=== PATIENT | female | born 1940 | race Caucasian/White ===

== ENCOUNTER 2024-04-16 12:04 | Observation (INO) ==
[2024-04-16] MEDS: NS 1,000 ML IV 1,000 ML IV ONE (12:46)
--- NOTE | 2024-04-16 12:50 | EKG ---
Test Reason : covid Blood Pressure : */* mmHG Vent. Rate : 80 BPM Atrial Rate : 80 BPM P-R Int : 156 ms QRS Dur : 126 ms QT Int : 410 ms P-R-T Axes : 46 -2 111 degrees QTc Int : 472 ms Normal sinus rhythm Left bundle branch block Abnormal ECG No previous ECGs available Confirmed by Go Falcon MD ([id number]) on 04/16/2024 5:39:05 PM Referred By: Confirmed By: Go Falcon MD
[2024-04-16 12:53] LABS: BASOPHILS % (AUTO) 0.7 % (0.2-1.0); HEMATOCRIT 37.3 % (36.0-47.0); HEMOGLOBIN 12.8 g/dL (12.0-16.0); LYMPHOCYTES # (AUTO) 0.7 X10^3/uL (1.3-2.9); LYMPHOCYTES % (AUTO) 14.2 % (21.0-51.0); MEAN CORPUSCULAR HEMOGLOBIN 29.9 pg (27.0-34.0); MEAN CORPUSCULAR HGB CONC 34.2 g/dL (33.0-35.0); MEAN CORPUSCULAR VOLUME 87.5 fL (80.0-100.0); MONOCYTES # (AUTO) 0.6 x10^3/uL (0.3-0.8); MONOCYTES % (AUTO) 13.3 % (0.0-13.0); NEUTROPHILS # (AUTO) 3.4 x10^3/uL (2.2-4.8); NEUTROPHILS % (AUTO) 71.8 % (42.0-75.0); PLATELET COUNT 349 X10^3/uL (150.0-450.0); RED BLOOD COUNT 4.27 X10^6/uL (3.5-5.4); RED CELL DISTRIBUTION WIDTH 13.5 % (11.6-16.5); WHITE BLOOD COUNT 4.8 X10^3/uL (3.6-10.0)
--- NOTE | 2024-04-16 12:58 | DR.URIAD ---
HPI Time Seen Time Seen by Provider: 04/16/24 12:58 PCP Primary Care Physician: Brionna Seth Complaint Chief Complaint Doctors Comments: From primary care providers office with diagnosis of COVID today and lethargy. Chief Complaint:: c/o weakness and was DX with COVID today at PCP office. denies cough or SOB only c/o sore throat and difficulty swallowing dt the sore throat. COVID-19 Has patient experienced Coronavirus symptoms: No Source History Provided: Patient Mode of Arrival Mode of Arrival: Ambulatory Timing Onset of Chief Complaint: 04/13/24 Quality Shortness of Breath: none PMH PMH Past Medical History: Yes Past Medical History: Arthritis, Dyslipidemia and Hypertension Past Surgical History: Yes Surgical History: Other Past Surgical History Comment: breast left lumpectomy Family History History of Family Medical Conditions: Yes Family Medical History: Cancer, [place], Coronary Artery Disease and Hypertension Social History Type of Tobacco Use: None Alcohol Use: None Do you use any recreational Drugs:: No Lives With: Alone Lives Where: Home Travel Risk Has patient experienced Coronavirus symptoms: No Infectious screening Have you traveled outside the country in the last 6 months?: No Isolation: Standard ROS Review of Systems Constitutional: Other (With some hypoxia and lethargy) Eyes: No Symptoms Reported ENTM: No Symptoms Reported Respiratoy: Non-Productive Cough Cardiovascular: No Symptoms Reported Gastrointestinal/Abdominal: No Symptoms Reported Genitourinary: No Symptoms Reported Neurological: No Symptoms Reported Musculoskeletal: No Symptoms Reported Integumentary: No Symptoms Reported Hematologic/Lymphatic: No Symptoms Reported Endocrine: No Symptoms Reported Psychiatric: No Symptoms Reported PE Vital Signs Vitals: Vital Signs Temperature 98.1 F Pulse Rate 96 Pulse Rate 82 Pulse Rate 85 Pulse Rate 82 Pulse Rate 81 Pulse Rate 79 Pulse Rate 77 Pulse Rate 76 Pulse Rate 75 Pulse Rate 75 Pulse Rate 75 Pulse Rate 125 Pulse Rate 77 Pulse Rate 70 Pulse Rate 154 Pulse Rate 136 Pulse Rate 78 Pulse Rate 77 Pulse Rate 83 Respiratory Rate 25 Respiratory Rate 15 Respiratory Rate 23 Respiratory Rate 25 Respiratory Rate 21 Respiratory Rate 19 Respiratory Rate 17 Respiratory Rate 26 Respiratory Rate 19 Respiratory Rate 27 Respiratory Rate 17 Respiratory Rate 32 Respiratory Rate 29 Respiratory Rate 39 Respiratory Rate 37 Respiratory Rate 39 Respiratory Rate 25 Respiratory Rate 21 Respiratory Rate 20 Blood Pressure 104/69 Blood Pressure 116/72 Blood Pressure 105/53 Blood Pressure 94/59 Blood Pressure 103/49 Blood Pressure 120/82 Blood Pressure 100/71 O2 Sat by Pulse Oximetry 93 O2 Sat by Pulse Oximetry 94 O2 Sat by Pulse Oximetry 96 O2 Sat by Pulse Oximetry 93 O2 Sat by Pulse Oximetry 95 O2 Sat by Pulse Oximetry 94 O2 Sat by Pulse Oximetry 98 O2 Sat by Pulse Oximetry 100 O2 Sat by Pulse Oximetry 98 O2 Sat by Pulse Oximetry 96 O2 Sat by Pulse Oximetry 98 O2 Sat by Pulse Oximetry 100 O2 Sat by Pulse Oximetry 95 O2 Sat by Pulse Oximetry 99 O2 Sat by Pulse Oximetry 96 O2 Sat by Pulse Oximetry 94 O2 Sat by Pulse Oximetry 99 General Limitations: Physical Limitation (weak) General Appearance: Lethargic Head Head Exam: Normal Inspection, Atraumatic and Normocephalic Eyes Eye exam: Normal Appearance and PERRL ENT ENT Exam: Normal Oropharynx External Ear Exam: Normal External Inspection TM/Canal Exam: Bilateral: Normal Nose Exam: Normal Nose Exam Nasal Speculum Exam: Bilateral: Normal Mouth Exam: Normal Inspection Throat Exam: Normal Inspection Neck Neck Exam: Normal Inspection Chest Chest Inspection: Normal Inspection Respiratory Respiratory Exam: Other (rhonchi) Cardiovascular Cardiovascular Exam: Regular Rate Abdominal Exam Abdominal Exam: Normal Inspection, Normal Bowel Sounds and Soft Extremeties Extremities Exam: Normal Inspection and Full ROM Back Back Exam: Normal Inspection Neurologic Neurological Exam: Alert and Oriented X3 Psychiatric Psychiatric Exam: Normal Affect Skin Skin Exam: Warm and Dry MDM Differential Diagnosis Differential Diagnosis: Influenza A, Influenza B and URI (covid,dehydration,lethargy) COURSE Treatment Treatment: Patient was sent over from primary care provider office with the diagnosis of COVID-positive. Lethargic most probable dehydrated and needed further evaluation and treatment. We did do some labs on this patient and her sodium was low at 126 potassium was 3.8 she did have a magnesium level that was low at 1.3 we did a troponin was 11.0. We did give the patient a 1 L bolus of normal saline in the ER and the patient also got out 1 g of magnesium IV. Due to her lethargy all we called the on-call physician Dr. Crow and we decided to put her in for observation for deconditioning, dehydration, hypomagnesemia and for COVID. We are going to make sure that the keep on oxygen therapy give her some fluids at 125 cc an hour give her magnesium oxide 400 mg orally daily. ROR Labs Reviewed Laboratory Results Reviewed?: Yes 04/16/24 12:34 04/16/24 12:34 Laboratory: WBC 4.8 X10^3/uL (3.6-10.0) 04/16/24 12:34 RBC 4.27 X10^6/uL (3.5-5.4) 04/16/24 12:34 Hgb 12.8 g/dL (12.0-16.0) 04/16/24 12:34 Hct 37.3 % (36.0-47.0) 04/16/24 12:34 MCV 87.5 fL (80.0-100.0) 04/16/24 12:34 MCH 29.9 pg (27.0-34.0) 04/16/24 12:34 MCHC 34.2 g/dL (33.0-35.0) 04/16/24 12:34 RDW 13.5 % (11.6-16.5) 04/16/24 12:34 Plt Count 349 X10^3/uL (150.0-450.0) 04/16/24 12:34 MPV 7.0 fL (7.4-11.0) L 04/16/24 12:34 Neut % (Auto) 71.8 % (42.0-75.0) 04/16/24 12:34 Lymph % (Auto) 14.2 % (21.0-51.0) L 04/16/24 12:34 [place] % (Auto) 13.3 % (0.0-13.0) H 04/16/24 12:34 Eos % (Auto) 0.0 % (0.9-2.9) L 04/16/24 12:34 Baso % (Auto) 0.7 % (0.2-1.0) 04/16/24 12:34 Neut # (Auto) 3.4 x10^3/uL (2.2-4.8) 04/16/24 12:34 Lymph # (Auto) 0.7 X10^3/uL (1.3-2.9) L 04/16/24 12:34 [place] # (Auto) 0.6 x10^3/uL (0.3-0.8) 04/16/24 12:34 Eos # (Auto) 0.0 x10^3/uL (0.0-0.2) 04/16/24 12:34 Baso # (Auto) 0.0 X10^3/uL (0.0-0.1) 04/16/24 12:34 Absolute Nucleated RBC 0.0 /100WBC 04/16/24 12:34 PT 18.9 SECONDS (11.8-14.3) 04/16/24 12:34 INR Target Range - 04/16/24 12:34 INR 1.63 (0.8-1.3) H 04/16/24 12:34 APTT 49.5 SECONDS (22.9-36.5) H 04/16/24 12:34 PTT Comment - 04/16/24 12:34 Sodium 126 mmol/L (136-145) L 04/16/24 12:34 Corrected Sodium 127 mmol/L (136-145) L 04/16/24 12:34 Potassium 3.8 mmol/L (3.5-5.1) 04/16/24 12:34 Chloride 90 mmol/L (98-107) L 04/16/24 12:34 Carbon Dioxide 27.6 mmol/L (21-32) 04/16/24 12:34 BUN 15 mg/dL (7-18) 04/16/24 12:34 Creatinine 2.08 mg/dL (0.55-1.02) H 04/16/24 12:34 Est GFR (MDRD) Af Amer 29 (>60) L 04/16/24 12:34 Est GFR (MDRD) Non-Af 24 (>60) L 04/16/24 12:34 Glucose 152 mg/dL (65-99) H 04/16/24 12:34 POC Glucose (mg/dL) 145 mg/dL (65-99) H 04/16/24 12:44 Calcium 9.6 mg/dL (8.5-10.1) 04/16/24 12:34 Corrected Calcium TNP 04/16/24 12:34 Magnesium 1.3 mg/dL (2.0-2.9) L 04/16/24 12:34 Total Bilirubin 0.30 mg/dL (0.2-1.0) 04/16/24 12:34 AST 58 Units/L (15-37) H 04/16/24 12:34 ALT 37 Units/L (12-78) 04/16/24 12:34 Alkaline Phosphatase 52 Units/L (46-116) 04/16/24 12:34 Creatine Kinase 293 Units/L (26-192) H 04/16/24 12:34 Troponin I High Sens 11.0 ng/L (4.0-60.0) 04/16/24 12:34 Total Protein 7.6 g/dL (6.4-8.2) 04/16/24 12:34 Albumin 3.6 g/dL (3.4-5.0) 04/16/24 12:34 Globulin 4.0 g/dL (2.5-4.5) 04/16/24 12:34 Albumin/Globulin Ratio 0.9 Ratio (1.1-2.1) L 04/16/24 12:34 Specimen Type Clean catch urine 04/16/24 15:30 Urine Color Yellow (YELLOW) 04/16/24 15:30 Urine Appearance Clear (CLEAR) 04/16/24 15:30 Urine pH 6.0 (5.0 - 8.0) 04/16/24 15:30 Ur Specific [place] 1.020 (1.000-1.030) 04/16/24 15:30 Urine Protein 2+ (NEGATIVE) 04/16/24 15:30 Urine Glucose (UA) Negative (NEGATIVE) 04/16/24 15:30 Urine Ketones Negative (NEGATIVE) 04/16/24 15:30 Urine Blood 1+ (NEGATIVE) 04/16/24 15:30 Urine Nitrite Negative (NEGATIVE) 04/16/24 15:30 Urine Bilirubin Negative (NEGATIVE) 04/16/24 15:30 Urine Urobilinogen Normal (NORMAL) 04/16/24 15:30 Ur Leukocyte Esterase Negative (NEGATIVE) 04/16/24 15:30 Urine RBC 0-2 /HPF (0-3) 04/16/24 15:30 Urine WBC 0-2 /HPF (0-5) 04/16/24 15:30 Ur Squamous Epith Cells Few /HPF (NEGATIVE) 04/16/24 15:30 Urine Bacteria 1+ /HPF (NEGATIVE) 04/16/24 15:30 Granular Casts Few /LPF (NEGATIVE) 04/16/24 15:30 Ur Culture Indicated? No/not indicated 04/16/24 15:30 Opioid Opioid Risk Tool Age ([place]agar box if 16-45): No History of Preadolescent Sexual Abuse: No Total: 0 Total Score Risk Category: Low Risk Copyright: Umberto RAHMAN predicting aberrant behaviors Discharge Plan Diagnosis Discharge Problem: COVID-19, Dehydration, Physical deconditioning, Hypomagnesemia Discharge Plan Patient Disposition: ADMITTED INPATIENT Condition: Stable Prescriptions: No Action hydrochlorothiazide 50 mg tablet 50 mg PO QDAY amlodipine 5 mg tablet 5 mg PO QDAY omeprazole 40 mg capsule,delayed release(DR/EC) 40 mg PO BID alprazolam 0.5 mg tablet 0.5 mg PO QDAY pravastatin 80 mg tablet 80 mg PO QDAY mirtazapine 30 mg tablet 30 mg PO QPM lisinopril 40 mg tablet 40 mg PO QDAY fenofibrate 160 mg tablet 160 mg PO QDAY Eliquis 5 mg tablet 5 mg PO BID Health Concerns: Post Hospitalization: new medications and changes needed to prevent readmission or further decline. Pt educated and given instructions on all concerns. Plan of Treatment: Continue with present treatment and follow up plan. Pt is to keep follow up appointment as instructed and take medications as ordered. Orders to Discharge Patient Discharge Orders: Transfer (Routine); Ordered 04/16/24 Ordered By: Ziyad Beavers Follow ups/Referrals Follow ups/Referrals: BRIONNA SETH [Primary Care Provider] - 3 days Instructions Stand Alone Forms: Find Help Web Site, Post Hospital Follow Up Care
[2024-04-16 13:08] LABS: INR 1.63 (0.8-1.3)
[2024-04-16 13:19] LABS: ALANINE AMINOTRANSFERASE 37 Units/L (12-78); ALBUMIN 3.6 g/dL (3.4-5.0); ALKALINE PHOSPHATASE 52 Units/L (46-116); ASPARTATE AMINO TRANSFERASE 58 Units/L (15-37); BLOOD UREA NITROGEN 15 mg/dL (7-18); CALCIUM 9.6 mg/dL (8.5-10.1); CARBON DIOXIDE 27.6 mmol/L (21-32); CHLORIDE 90 mmol/L (98-107); COR NA(FOR HYPERGLY) 127 mmol/L (136-145); CREATININE 2.08 mg/dL (0.55-1.02); GLUCOSE 152 mg/dL (65-99); POTASSIUM 3.8 mmol/L (3.5-5.1); SODIUM 126 mmol/L (136-145); TOTAL PROTEIN 7.6 g/dL (6.4-8.2); eGFR NON BLACK RACES 24 (>60)
[2024-04-16 15:48] LABS: BILIRUBIN,URINE NEGATIVE (NEGATIVE); BLOOD/HEMOGLOBIN,URINE 1+ (NEGATIVE); GLUCOSE, URINE NEGATIVE (NEGATIVE); KETONES,URINE NEGATIVE (NEGATIVE); LEUKOCYTE ESTERASE ,URINE NEGATIVE (NEGATIVE); NITRITES,URINE NEGATIVE (NEGATIVE); PROTEIN,URINE 2+ (NEGATIVE); UROBILINOGEN,URINE NORMAL (NORMAL)
[2024-04-16] MEDS: MAGNESIUM SULFATE 1 GRAM/100 mL PREMIX 1 G/100 ML BAG IV ONE (16:00)
[2024-04-16 16:11] LABS: APPEARANCE,URINE CLEAR (CLEAR); COLOR,URINE YELLOW (YELLOW)
[2024-04-16 16:18] LABS: BACTERIA,URINE 1+ /HPF (NEGATIVE); GRANULAR CASTS,URINE FEW /LPF (NEGATIVE); RBC,URINE 0-2 /HPF (0-3); SQUAMOUS EPITHELIAL CELL,UR FEW /HPF (NEGATIVE)
[2024-04-16] MEDS: NS 1,000 ML IV 1,000 ML IV SCH (17:20)
[2024-04-16 21:09] VITALS: BMI 23.1
[2024-04-16] MEDS: RESTORIL CAP 15 MG PO PRN (21:58)
--- NOTE | 2024-04-16 23:44 | RAD ---
EXAM: CHEST HISTORY: COVID, AFIB; COMPARISON: None. TECHNIQUE: Frontal view of the chest was submitted for interpretation. FINDINGS: The cardiomediastinal silhouette is within normal limits. Lungs show no focal consolidation, pneumot horax, or pleural fluid. IMPRESSION: No acute cardiopulmonary process. THIS IS AN ELECTRONICALLY VERIFIED FINAL REPORT 04/16/2024 11:41 PM - Electronically signed by Angélica Coronado MD
[2024-04-17 06:54] LABS: BASOPHILS % (AUTO) 0.6 % (0.2-1.0); HEMATOCRIT 33.2 % (36.0-47.0); HEMOGLOBIN 11.5 g/dL (12.0-16.0); LYMPHOCYTES % (AUTO) 28.3 % (21.0-51.0); MEAN CORPUSCULAR HEMOGLOBIN 29.9 pg (27.0-34.0); MEAN CORPUSCULAR HGB CONC 34.5 g/dL (33.0-35.0); MEAN CORPUSCULAR VOLUME 86.7 fL (80.0-100.0); MEAN PLATELET VOLUME 7.3 fL (7.4-11.0); MONOCYTES # (AUTO) 0.4 x10^3/uL (0.3-0.8); MONOCYTES % (AUTO) 12.9 % (0.0-13.0); NEUTROPHILS % (AUTO) 58.2 % (42.0-75.0); PLATELET COUNT 249 X10^3/uL (150.0-450.0); RED BLOOD COUNT 3.83 X10^6/uL (3.5-5.4); RED CELL DISTRIBUTION WIDTH 13.6 % (11.6-16.5); WHITE BLOOD COUNT 3.5 X10^3/uL (3.6-10.0)
[2024-04-17 07:10] LABS: ALANINE AMINOTRANSFERASE 26 Units/L (12-78); ALBUMIN 2.7 g/dL (3.4-5.0); ALKALINE PHOSPHATASE 41 Units/L (46-116); ASPARTATE AMINO TRANSFERASE 44 Units/L (15-37); BLOOD UREA NITROGEN 13 mg/dL (7-18); CALCIUM 8.4 mg/dL (8.5-10.1); CARBON DIOXIDE 26.4 mmol/L (21-32); CHLORIDE 96 mmol/L (98-107); CHOL/HDL RATIO 4.5 (0.0-5.0); CHOLESTEROL 126 mg/dL (0-200); COR CA(FOR HYPOALB) 9.4 mg/dL (8.5-10.1); CREATININE 1.31 mg/dL (0.55-1.02); GLUCOSE 95 mg/dL (65-99); HDL CHOLESTEROL 28 mg/dL (40-60); MAGNESIUM 1.3 mg/dL (2.0-2.9); POTASSIUM 3.1 mmol/L (3.5-5.1); SODIUM 130 mmol/L (136-145); TOTAL PROTEIN 6.1 g/dL (6.4-8.2); TRIGLYCERIDES 175 mg/dL (0-150); eGFR NON BLACK RACES 41 (>60)
[2024-04-17] MEDS: MAG-OX TAB PO SCH (09:35)
[2024-04-17] MEDS ORDERED: ALPRAZOLAM ODT PO PRN (10:24)
[2024-04-17] MEDS: ELIQUIS PO SCH (11:34)
[2024-04-17] MEDS: NORVASC TAB 5 MG PO SCH (11:41)
[2024-04-17] MEDS: NS + KCL 20 MEQ/L 1,000 ML IV SCH (11:41)
[2024-04-17] MEDS: TRICOR TAB 160 MG PO SCH (11:41)
[2024-04-17] MEDS: MAGNESIUM SULFATE 1 GRAM/100 mL PREMIX 1 G/100 ML BAG IV SCH (11:42)
--- NOTE | 2024-04-17 13:22 | DR.H&P ---
H&P History & Physical for Day of: H&P Date: 04/17/24 Chief Complaint Chief Complaint: Ms Santos is a 83y/o female with a past medical history of hypertension, hyperlipidemia and anxiety presented with worsening shortness of breath and cough. She tested positive for COVID yesterday after being exposed few days ago. She has been sick since Friday. ER workup showed dehydration including elevated creatinine, low potassium and low magnesium. Chest x-ray did not show any acute changes. She was started on IV fluids and admitted for further management. Patient is coughing up a lot of mucus. She remains on room air. Labs/imaging reviewed: -WBC 3.5 hemoglobin 11.5 potassium 3.1 magnesium 1.3 creatinine 1.31 glucose 95 -Chest x-ray no acute changes -COVID-positive Plan: Continue supportive care including nebs, Pulmicort and I-S. O2 as needed. Order sputum culture, repeat chest x-ray. Follow pending cultures. Change fluids to normal saline with potassium. Replace magnesium. Replace electrolytes as per protocol. Resume home medications. Monitor a.m. labs and imaging. Past Medical History Past Medical History: Arthritis, Dyslipidemia and Hypertension Past Surgical History Surgical History: Other Family History Family Medical History: Diabetes Mellitus, Cancer, [place] and Coronary Artery Disease Social History Does patient currently use any type of tobacco product: No Type of Tobacco Use: None Does any household member use tobacco: No Alcohol Use: None Drug Use: None Medications Home Medications: Home Medications Medication Instructions Recorded Confirmed Type alprazolam 0.5 mg tablet 0.5 mg PO QDAY 04/16/24 04/16/24 History amlodipine 5 mg tablet 5 mg PO QDAY 04/16/24 04/16/24 History apixaban 5 mg tablet (Eliquis) 5 mg PO BID 04/16/24 04/16/24 History fenofibrate 160 mg tablet 160 mg PO QDAY 04/16/24 04/16/24 History hydrochlorothiazide 50 mg tablet 50 mg PO QDAY 04/16/24 04/16/24 History lisinopril 40 mg tablet 40 mg PO QDAY 04/16/24 04/16/24 History mirtazapine 30 mg tablet 30 mg PO QPM 04/16/24 04/16/24 History omeprazole 40 mg capsule,delayed 40 mg PO BID 04/16/24 04/16/24 History release pravastatin 80 mg tablet 80 mg PO QDAY 04/16/24 04/16/24 History Allergies Allergies Allergy/AdvReac Type Severity Reaction Status Date / Time diazepam [From Valium] AdvReac Verified 04/16/24 16:18 Labs 04/17/24 06:03 04/17/24 06:03 Labs: Laboratory WBC 3.5 X10^3/uL (3.6-10.0) L 04/17/24 06:03 RBC 3.83 X10^6/uL (3.5-5.4) 04/17/24 06:03 Hgb 11.5 g/dL (12.0-16.0) L 04/17/24 06:03 Hct 33.2 % (36.0-47.0) L 04/17/24 06:03 MCV 86.7 fL (80.0-100.0) 04/17/24 06:03 MCH 29.9 pg (27.0-34.0) 04/17/24 06:03 MCHC 34.5 g/dL (33.0-35.0) 04/17/24 06:03 RDW 13.6 % (11.6-16.5) 04/17/24 06:03 Plt Count 249 X10^3/uL (150.0-450.0) 04/17/24 06:03 MPV 7.3 fL (7.4-11.0) L 04/17/24 06:03 Neut % (Auto) 58.2 % (42.0-75.0) 04/17/24 06:03 Lymph % (Auto) 28.3 % (21.0-51.0) 04/17/24 06:03 [place] % (Auto) 12.9 % (0.0-13.0) 04/17/24 06:03 Eos % (Auto) 0.0 % (0.9-2.9) L 04/17/24 06:03 Baso % (Auto) 0.6 % (0.2-1.0) 04/17/24 06:03 Neut # (Auto) 2.0 x10^3/uL (2.2-4.8) L 04/17/24 06:03 Lymph # (Auto) 1.0 X10^3/uL (1.3-2.9) L 04/17/24 06:03 [place] # (Auto) 0.4 x10^3/uL (0.3-0.8) 04/17/24 06:03 Eos # (Auto) 0.0 x10^3/uL (0.0-0.2) 04/17/24 06:03 Baso # (Auto) 0.0 X10^3/uL (0.0-0.1) 04/17/24 06:03 Absolute Nucleated RBC 0.3 /100WBC 04/17/24 06:03 PT 18.9 SECONDS (11.8-14.3) 04/16/24 12:34 INR Target Range - 04/16/24 12:34 INR 1.63 (0.8-1.3) H 04/16/24 12:34 APTT 49.5 SECONDS (22.9-36.5) H 04/16/24 12:34 PTT Comment - 04/16/24 12:34 Sodium 130 mmol/L (136-145) L 04/17/24 06:03 Corrected Sodium TNP 04/17/24 06:03 Potassium 3.1 mmol/L (3.5-5.1) L 04/17/24 06:03 Chloride 96 mmol/L (98-107) L 04/17/24 06:03 Carbon Dioxide 26.4 mmol/L (21-32) 04/17/24 06:03 BUN 13 mg/dL (7-18) 04/17/24 06:03 Creatinine 1.31 mg/dL (0.55-1.02) H 04/17/24 06:03 Est GFR (MDRD) Af Amer 50 (>60) L 04/17/24 06:03 Est GFR (MDRD) Non-Af 41 (>60) L 04/17/24 06:03 Glucose 95 mg/dL (65-99) 04/17/24 06:03 POC Glucose (mg/dL) 145 mg/dL (65-99) H 04/16/24 12:44 Calcium 8.4 mg/dL (8.5-10.1) L 04/17/24 06:03 Corrected Calcium 9.4 mg/dL (8.5-10.1) 04/17/24 06:03 Magnesium 1.3 mg/dL (2.0-2.9) L 04/17/24 06:03 Total Bilirubin 0.30 mg/dL (0.2-1.0) 04/17/24 06:03 AST 44 Units/L (15-37) H 04/17/24 06:03 ALT 26 Units/L (12-78) 04/17/24 06:03 Alkaline Phosphatase 41 Units/L (46-116) L 04/17/24 06:03 Creatine Kinase 293 Units/L (26-192) H 04/16/24 12:34 Troponin I High Sens 11.0 ng/L (4.0-60.0) 04/16/24 12:34 Total Protein 6.1 g/dL (6.4-8.2) L 04/17/24 06:03 Albumin 2.7 g/dL (3.4-5.0) L 04/17/24 06:03 Globulin 3.4 g/dL (2.5-4.5) 04/17/24 06:03 Albumin/Globulin Ratio 0.8 Ratio (1.1-2.1) L 04/17/24 06:03 Triglycerides 175 mg/dL (0-150) H 04/17/24 06:03 Cholesterol 126 mg/dL (0-200) 04/17/24 06:03 LDL Cholesterol, Calc 63 mg/dL (0-100) 04/17/24 06:03 HDL Cholesterol 28 mg/dL (40-60) L 04/17/24 06:03 Cholesterol/HDL Ratio 4.5 (0.0-5.0) 04/17/24 06:03 Specimen Type Clean catch urine 04/16/24 15:30 Urine Color Yellow (YELLOW) 04/16/24 15:30 Urine Appearance Clear (CLEAR) 04/16/24 15:30 Urine pH 6.0 (5.0 - 8.0) 04/16/24 15:30 Ur Specific [place] 1.020 (1.000-1.030) 04/16/24 15:30 Urine Protein 2+ (NEGATIVE) 04/16/24 15:30 Urine Glucose (UA) Negative (NEGATIVE) 04/16/24 15:30 Urine Ketones Negative (NEGATIVE) 04/16/24 15:30 Urine Blood 1+ (NEGATIVE) 04/16/24 15:30 Urine Nitrite Negative (NEGATIVE) 04/16/24 15:30 Urine Bilirubin Negative (NEGATIVE) 04/16/24 15:30 Urine Urobilinogen Normal (NORMAL) 04/16/24 15:30 Ur Leukocyte Esterase Negative (NEGATIVE) 04/16/24 15:30 Urine RBC 0-2 /HPF (0-3) 04/16/24 15:30 Urine WBC 0-2 /HPF (0-5) 04/16/24 15:30 Ur Squamous Epith Cells Few /HPF (NEGATIVE) 04/16/24 15:30 Urine Bacteria 1+ /HPF (NEGATIVE) 04/16/24 15:30 Granular Casts Few /LPF (NEGATIVE) 04/16/24 15:30 Ur Culture Indicated? No/not indicated 04/16/24 15:30 Review of Systems Constitutional: Weakness and Malaise Eyes: No Symptoms Reported ENT: No Symptoms Reported Respiratory: Cough, Shortness of Breath and Sputum Cardiovascular: No Symptoms Reported Gastrointestinal: No Symptoms Reported Genitourinary: No Symptoms Reported Musculoskeletal: No Symptoms Reported Skin: No Symptoms Reported Neurological: No Symptoms Reported Oriented: Normal Eyes: Normal Respiratory: Diminished Throughout Cardiovascular: Normal Auscultation: Bowel Sounds: Normal Palpation: Normal Tenderness: Normal Skin: Decreased [place] Musculoskeletal: Normal Psychiatric: Normal Mood Description: Calm Affect: Normal Speech Pattern: Clear and Appropriate Assessment/Plan (1) COVID-19: Status: Acute (2) Physical deconditioning: Status: Acute (3) Hypomagnesemia: Status: Acute (4) Dehydration: Status: Acute (5) Hypokalemia: Status: Acute (6) VICENTE (acute kidney injury): Status: Acute Review H&P Reviewed: Yes Patient was examined?: Yes
[2024-04-17] MEDS: DUONEB 0.5 MG/3 MG (3 mL) NEB SCH (14:00)
[2024-04-17] MEDS: PULMICORT NEB TX 0.5 MG NEB SCH (17:08)
[2024-04-17] MEDS: TYLENOL 325 MG TAB PO PRN (18:00)
[2024-04-17] MEDS: PRAVACHOL PO SCH (21:37)
[2024-04-17] MEDS: REMERON PO SCH (21:37)
[2024-04-17] MEDS: PriLOSEC PO SCH (21:37)
[2024-04-18] MEDS: MAGNESIUM SULFATE 1 GRAM/100 mL PREMIX 1 G/100 ML BAG IV ONE ×2 (04:58→15:20)
[2024-04-18] MEDS: NS 1,000 ML IV 1,000 ML ONE (04:58)
[2024-04-18 06:58] LABS: BASOPHILS # (AUTO) 0.1 X10^3/uL (0.0-0.1); BASOPHILS % (AUTO) 0.9 % (0.2-1.0); HEMATOCRIT 30.7 % (36.0-47.0); HEMOGLOBIN 10.6 g/dL (12.0-16.0); LYMPHOCYTES # (AUTO) 0.5 X10^3/uL (1.3-2.9); LYMPHOCYTES % (AUTO) 7.8 % (21.0-51.0); MEAN CORPUSCULAR HGB CONC 34.5 g/dL (33.0-35.0); MEAN CORPUSCULAR VOLUME 87.2 fL (80.0-100.0); MEAN PLATELET VOLUME 7.4 fL (7.4-11.0); MONOCYTES # (AUTO) 0.3 x10^3/uL (0.3-0.8); MONOCYTES % (AUTO) 5.9 % (0.0-13.0); NEUTROPHILS % (AUTO) 85.4 % (42.0-75.0); PLATELET COUNT 265 X10^3/uL (150.0-450.0); RED BLOOD COUNT 3.52 X10^6/uL (3.5-5.4); RED CELL DISTRIBUTION WIDTH 13.7 % (11.6-16.5); WHITE BLOOD COUNT 5.8 X10^3/uL (3.6-10.0)
[2024-04-18 07:32] LABS: ALBUMIN 2.5 g/dL (3.4-5.0); CALCIUM 8.3 mg/dL (8.5-10.1); CARBON DIOXIDE 26.1 mmol/L (21-32); COR CA(FOR HYPOALB) 9.5 mg/dL (8.5-10.1); CREATININE 1.19 mg/dL (0.55-1.02); MAGNESIUM 1.7 mg/dL (2.0-2.9); POTASSIUM 3.3 mmol/L (3.5-5.1); TOTAL PROTEIN 5.9 g/dL (6.4-8.2)
--- NOTE | 2024-04-18 08:22 | RAD ---
EXAM:CHEST, 1 VIEWHISTORY:sob, covid +;COMPARISON:04/16/2024FINDINGS:Stable cardiomediastinal silhouette. Lungs show mild interstitial thickening and streaky basilar opacities without consolidation, sizeable pleural effusion, or visible pneumothorax or acute osseous finding.IMPRESSION:Nonspecific mild interstitial thickening and streaky basilar opacities without consolidation.THIS IS AN ELECTRONICALLY VERIFIED FINAL REPORT04/18/2024 8:18 AM - Electronically signed by Jason Eaton MD
[2024-04-18] MEDS: ZITHROMAX INJ 500 MG VIAL 500 MG in NS 250 ML IV 250 ML IV SCH (10:51)
[2024-04-18] MEDS: NS 250 ML IV 250 ML IV ONE (10:51)
[2024-04-18] MEDS ORDERED: TESSALON PERLES PO PRN (12:18)
[2024-04-18] MEDS ORDERED: TUSSIONEX PENNKINETIC SUSP PO PRN (12:18)
--- NOTE | 2024-04-18 12:31 | PCM.PROG ---
Progress Note Progress Note for Day of Date of Exam: 04/18/24 Subjective Subjective: Patient seen at bedside, no acute events overnight. She is feeling better today. Her cough has improved. She is currently admitted for COVID-19 infection. She did have a temp of 103.1 last night and received Tylenol. CXR did show bibasilar opacities. AIT pending. She remains on room air. Labs/imaging reviewed: -WBC 5.8 Hgb 10.6 K 3.3 Cr 1.19 Mag 1.7 -CXR reviewed -AIT pending Plan: Continue current treatment. Continue nebs, pulmicort and IS. Add cough medicine. Start Azithromycin. Continue gentle hydration. Replace electrolytes as needed. Continue home medications. Ambulate as tolerated. SCDs. Repeat CXR in the AM. Follow pending results. Monitor AM labs/imaging. Past Medical Family Social History Allergies: Allergies diazepam [From Valium] Adverse Reaction (Verified 04/16/24 16:18) Vital Signs and I&O's Vital Signs: Vital Signs Temperature 98.4 F Pulse Rate 65 Respiratory Rate 18 O2 Sat by Pulse Oximetry 95 Intake and Output: Intake & Output 04/15/24 04/16/24 04/17/24 04/19/24 23:59 23:59 23:59 00:59 Intake Total 397 / 397 4294 / 4294 803 / 803 Balance 397 / 397 4294 / 4294 803 / 803 Physical Exam Oriented: Normal Eyes: Normal Throat: Normal Respiratory: Generalized, Rales and Rhonchi Cardiovascular: Normal Auscultation: Bowel Sounds: Normal Palpation: Normal Tenderness: Normal Skin: Decreased [place] Musculoskeletal: Normal Psychiatric: Normal Mood Description: Calm Affect: Normal Speech Pattern: Clear and Appropriate Laboratory and Diagnostics 04/18/24 05:40 04/18/24 05:40 Labs: 04/17/24 18:25 Sputum - Expectorated Sputum Sputum Culture - Preliminary 04/17/24 18:25 Sputum - Expectorated Sputum - Final Laboratory WBC 5.8 X10^3/uL (3.6-10.0) 04/18/24 05:40 RBC 3.52 X10^6/uL (3.5-5.4) 04/18/24 05:40 Hgb 10.6 g/dL (12.0-16.0) L 04/18/24 05:40 Hct 30.7 % (36.0-47.0) L 04/18/24 05:40 MCV 87.2 fL (80.0-100.0) 04/18/24 05:40 MCH 30.0 pg (27.0-34.0) 04/18/24 05:40 MCHC 34.5 g/dL (33.0-35.0) 04/18/24 05:40 RDW 13.7 % (11.6-16.5) 04/18/24 05:40 Plt Count 265 X10^3/uL (150.0-450.0) 04/18/24 05:40 MPV 7.4 fL (7.4-11.0) 04/18/24 05:40 Neut % (Auto) 85.4 % (42.0-75.0) H 04/18/24 05:40 Lymph % (Auto) 7.8 % (21.0-51.0) L 04/18/24 05:40 [place] % (Auto) 5.9 % (0.0-13.0) 04/18/24 05:40 Eos % (Auto) 0.0 % (0.9-2.9) L 04/18/24 05:40 Baso % (Auto) 0.9 % (0.2-1.0) 04/18/24 05:40 Neut # (Auto) 5.0 x10^3/uL (2.2-4.8) H 04/18/24 05:40 Lymph # (Auto) 0.5 X10^3/uL (1.3-2.9) L 04/18/24 05:40 [place] # (Auto) 0.3 x10^3/uL (0.3-0.8) 04/18/24 05:40 Eos # (Auto) 0.0 x10^3/uL (0.0-0.2) 04/18/24 05:40 Baso # (Auto) 0.1 X10^3/uL (0.0-0.1) 04/18/24 05:40 Absolute Nucleated RBC 0.1 /100WBC 04/18/24 05:40 PT 18.9 SECONDS (11.8-14.3) 04/16/24 12:34 INR Target Range - 04/16/24 12:34 INR 1.63 (0.8-1.3) H 04/16/24 12:34 APTT 49.5 SECONDS (22.9-36.5) H 04/16/24 12:34 PTT Comment - 04/16/24 12:34 Sodium 133 mmol/L (136-145) L 04/18/24 05:40 Corrected Sodium 133 mmol/L (136-145) L 04/18/24 05:40 Potassium 3.3 mmol/L (3.5-5.1) L 04/18/24 05:40 Chloride 99 mmol/L (98-107) 04/18/24 05:40 Carbon Dioxide 26.1 mmol/L (21-32) 04/18/24 05:40 BUN 11 mg/dL (7-18) 04/18/24 05:40 Creatinine 1.19 mg/dL (0.55-1.02) H 04/18/24 05:40 Est GFR (MDRD) Af Amer 55 (>60) L 04/18/24 05:40 Est GFR (MDRD) Non-Af 46 (>60) L 04/18/24 05:40 Glucose 120 mg/dL (65-99) H 04/18/24 05:40 POC Glucose (mg/dL) 145 mg/dL (65-99) H 04/16/24 12:44 Calcium 8.3 mg/dL (8.5-10.1) L 04/18/24 05:40 Corrected Calcium 9.5 mg/dL (8.5-10.1) 04/18/24 05:40 Magnesium 1.7 mg/dL (2.0-2.9) L 04/18/24 05:40 Total Bilirubin 0.30 mg/dL (0.2-1.0) 04/18/24 05:40 AST 40 Units/L (15-37) H 04/18/24 05:40 ALT 23 Units/L (12-78) 04/18/24 05:40 Alkaline Phosphatase 38 Units/L (46-116) L 04/18/24 05:40 Creatine Kinase 293 Units/L (26-192) H 04/16/24 12:34 Troponin I High Sens 11.0 ng/L (4.0-60.0) 04/16/24 12:34 Total Protein 5.9 g/dL (6.4-8.2) L 04/18/24 05:40 Albumin 2.5 g/dL (3.4-5.0) L 04/18/24 05:40 Globulin 3.4 g/dL (2.5-4.5) 04/18/24 05:40 Albumin/Globulin Ratio 0.7 Ratio (1.1-2.1) L 04/18/24 05:40 Triglycerides 175 mg/dL (0-150) H 04/17/24 06:03 Cholesterol 126 mg/dL (0-200) 04/17/24 06:03 LDL Cholesterol, Calc 63 mg/dL (0-100) 04/17/24 06:03 HDL Cholesterol 28 mg/dL (40-60) L 04/17/24 06:03 Cholesterol/HDL Ratio 4.5 (0.0-5.0) 04/17/24 06:03 Specimen Type Clean catch urine 04/16/24 15:30 Urine Color Yellow (YELLOW) 04/16/24 15:30 Urine Appearance Clear (CLEAR) 04/16/24 15:30 Urine pH 6.0 (5.0 - 8.0) 04/16/24 15:30 Ur Specific Lewis 1.020 (1.000-1.030) 04/16/24 15:30 Urine Protein 2+ (NEGATIVE) 04/16/24 15:30 Urine Glucose (UA) Negative (NEGATIVE) 04/16/24 15:30 Urine Ketones Negative (NEGATIVE) 04/16/24 15:30 Urine Blood 1+ (NEGATIVE) 04/16/24 15:30 Urine Nitrite Negative (NEGATIVE) 04/16/24 15:30 Urine Bilirubin Negative (NEGATIVE) 04/16/24 15:30 Urine Urobilinogen Normal (NORMAL) 04/16/24 15:30 Ur Leukocyte Esterase Negative (NEGATIVE) 04/16/24 15:30 Urine RBC 0-2 /HPF (0-3) 04/16/24 15:30 Urine WBC 0-2 /HPF (0-5) 04/16/24 15:30 Ur Squamous Epith Cells Few /HPF (NEGATIVE) 04/16/24 15:30 Urine Bacteria 1+ /HPF (NEGATIVE) 04/16/24 15:30 Granular Casts Few /LPF (NEGATIVE) 04/16/24 15:30 Ur Culture Indicated? No/not indicated 04/16/24 15:30 Plan (1) COVID-19: Status: Acute (2) Physical deconditioning: Status: Acute (3) Hypomagnesemia: Status: Acute (4) Dehydration: Status: Acute (5) Hypokalemia: Status: Acute (6) VICENTE (acute kidney injury): Status: Acute (7) Pneumonia: Status: Acute Qualifiers: Pneumonia type: due to unspecified organism Laterality: unspecified laterality Lung location: unspecified part of lung Qualified Code(s): J18.9 - Pneumonia, unspecified organism
[2024-04-18] MEDS: MAGNESIUM SULFATE 1 GRAM/100 mL PREMIX 1 G/100 ML BAG IV SCH (13:25)
[2024-04-18] MEDS ORDERED: MILK OF MAGNESIA PO PRN (13:38)
[2024-04-18] MEDS: COLACE CAP 100 MG PO SCH (21:23)
[2024-04-19 04:33] VITALS: O2SAT 93
[2024-04-19 04:44] LABS: BASOPHILS % (AUTO) 0.2 % (0.2-1.0); EOSINOPHILS % (AUTO) 0.1 % (0.9-2.9); HEMATOCRIT 29.7 % (36.0-47.0); HEMOGLOBIN 10.3 g/dL (12.0-16.0); LYMPHOCYTES # (AUTO) 0.7 X10^3/uL (1.3-2.9); LYMPHOCYTES % (AUTO) 12.4 % (21.0-51.0); MEAN CORPUSCULAR HEMOGLOBIN 29.8 pg (27.0-34.0); MEAN CORPUSCULAR HGB CONC 34.6 g/dL (33.0-35.0); MEAN CORPUSCULAR VOLUME 86.3 fL (80.0-100.0); MONOCYTES # (AUTO) 0.2 x10^3/uL (0.3-0.8); MONOCYTES % (AUTO) 3.7 % (0.0-13.0); NEUTROPHILS # (AUTO) 4.9 x10^3/uL (2.2-4.8); NEUTROPHILS % (AUTO) 83.6 % (42.0-75.0); PLATELET COUNT 273 X10^3/uL (150.0-450.0); RED BLOOD COUNT 3.45 X10^6/uL (3.5-5.4); RED CELL DISTRIBUTION WIDTH 13.5 % (11.6-16.5); WHITE BLOOD COUNT 5.9 X10^3/uL (3.6-10.0)
[2024-04-19 04:59] LABS: ALANINE AMINOTRANSFERASE 20 Units/L (12-78); ALBUMIN 2.3 g/dL (3.4-5.0); ALKALINE PHOSPHATASE 47 Units/L (46-116); ASPARTATE AMINO TRANSFERASE 36 Units/L (15-37); BLOOD UREA NITROGEN 11 mg/dL (7-18); CARBON DIOXIDE 26.2 mmol/L (21-32); CHLORIDE 100 mmol/L (98-107); COR CA(FOR HYPOALB) 9.4 mg/dL (8.5-10.1); CREATININE 1.12 mg/dL (0.55-1.02); GLUCOSE 109 mg/dL (65-99); MAGNESIUM 1.6 mg/dL (2.0-2.9); POTASSIUM 3.9 mmol/L (3.5-5.1); SODIUM 134 mmol/L (136-145); TOTAL PROTEIN 5.9 g/dL (6.4-8.2); eGFR NON BLACK RACES 49 (>60)
[2024-04-19] MEDS ORDERED: CONSULT PHARMACY - POTASSIUM & MAGNESIUM XX SCH (08:00)
[2024-04-19] MEDS: NS + KCL 20 MEQ/L 1,000 ML with MAGNESIUM SULFATE 50% INJ VIAL 1 G IV SCH (08:15)
--- NOTE | 2024-04-19 08:34 | RAD ---
EXAMINATION:CHEST, 1 VIEWHISTORY:covid+, pna; .COMPARISON STUDY:Chest x-ray 04/18/2019TECHNIQUE:Single portable AP view chestFINDINGS:Lungs are expanded. Patchy interstitial alveolar infiltrates in both lungs predominantly on the right. No focal areas of pulmonary consolidation or pleural fluid collections. Borderline cardiac silhouette enlargement. Bones appear intactIMPRESSION:Subtle infiltrates in both lungs. Borderline cardiac silhouette enlargement.THIS IS AN ELECTRONICALLY VERIFIED FINAL REPORT04/19/2024 8:31 AM - Electronically signed by Shira Sanchez MD
--- NOTE | 2024-04-19 09:49 | PCM.DCPLAN ---
DISCHARGE SUMMARY Admission Date Date of Admission: 04/16/24 Discharge Date Discharge Date: 04/19/24 Admission Diagnoses (1) COVID-19: Status: Acute (2) Physical deconditioning: Status: Acute (3) Hypomagnesemia: Status: Acute (4) Dehydration: Status: Acute (5) Hypokalemia: Status: Acute (6) VICENTE (acute kidney injury): Status: Acute (7) Pneumonia: Status: Acute (8) Severe sepsis: Status: Acute (9) Hyponatremia: Status: Acute Discharge Medications Discharge Medications: Home Medication List alprazolam 0.5 mg tablet 0.5 mg PO QDAY 04/16/24 [History] amlodipine 5 mg tablet 5 mg PO QDAY 04/16/24 [History] apixaban 5 mg tablet (Eliquis) 5 mg PO BID 04/16/24 [History] fenofibrate 160 mg tablet 160 mg PO QDAY 04/16/24 [History] hydrochlorothiazide 50 mg tablet 50 mg PO QDAY 04/16/24 [History] lisinopril 40 mg tablet 40 mg PO QDAY 04/16/24 [History] mirtazapine 30 mg tablet 30 mg PO QPM 04/16/24 [History] omeprazole 40 mg capsule,delayed release 40 mg PO BID 04/16/24 [History] pravastatin 80 mg tablet 80 mg PO QDAY 04/16/24 [History] Prescriptions: Hospital Course Vital Signs: Vital Signs Temperature 99.7 F Temperature 102.8 F Pulse Rate [Left Radial] 89 Respiratory Rate 20 Respiratory Rate 20 Respiratory Rate 16 Blood Pressure [Right Arm] 152/68 O2 Sat by Pulse Oximetry 93 Latest Lab Results: Laboratory Last Values WBC 5.9 X10^3/uL (3.6-10.0) 04/19/24 04:24 RBC 3.45 X10^6/uL (3.5-5.4) L 04/19/24 04:24 Hgb 10.3 g/dL (12.0-16.0) L 04/19/24 04:24 Hct 29.7 % (36.0-47.0) L 04/19/24 04:24 MCV 86.3 fL (80.0-100.0) 04/19/24 04:24 MCH 29.8 pg (27.0-34.0) 04/19/24 04:24 MCHC 34.6 g/dL (33.0-35.0) 04/19/24 04:24 RDW 13.5 % (11.6-16.5) 04/19/24 04:24 Plt Count 273 X10^3/uL (150.0-450.0) 04/19/24 04:24 MPV 7.0 fL (7.4-11.0) L 04/19/24 04:24 Neut % (Auto) 83.6 % (42.0-75.0) H 04/19/24 04:24 Lymph % (Auto) 12.4 % (21.0-51.0) L 04/19/24 04:24 [place] % (Auto) 3.7 % (0.0-13.0) 04/19/24 04:24 Eos % (Auto) 0.1 % (0.9-2.9) L 04/19/24 04:24 Baso % (Auto) 0.2 % (0.2-1.0) 04/19/24 04:24 Neut # (Auto) 4.9 x10^3/uL (2.2-4.8) H 04/19/24 04:24 Lymph # (Auto) 0.7 X10^3/uL (1.3-2.9) L 04/19/24 04:24 [place] # (Auto) 0.2 x10^3/uL (0.3-0.8) L 04/19/24 04:24 Eos # (Auto) 0.0 x10^3/uL (0.0-0.2) 04/19/24 04:24 Baso # (Auto) 0.0 X10^3/uL (0.0-0.1) 04/19/24 04:24 Absolute Nucleated RBC 0.0 /100WBC 04/19/24 04:24 PT 18.9 SECONDS (11.8-14.3) 04/16/24 12:34 INR Target Range - 04/16/24 12:34 INR 1.63 (0.8-1.3) H 04/16/24 12:34 APTT 49.5 SECONDS (22.9-36.5) H 04/16/24 12:34 PTT Comment - 04/16/24 12:34 Sodium 134 mmol/L (136-145) L 04/19/24 04:24 Corrected Sodium TNP 04/19/24 04:24 Potassium 3.9 mmol/L (3.5-5.1) 04/19/24 04:24 Chloride 100 mmol/L (98-107) 04/19/24 04:24 Carbon Dioxide 26.2 mmol/L (21-32) 04/19/24 04:24 BUN 11 mg/dL (7-18) 04/19/24 04:24 Creatinine 1.12 mg/dL (0.55-1.02) H 04/19/24 04:24 Est GFR (MDRD) Af Amer 59 (>60) 04/19/24 04:24 Est GFR (MDRD) Non-Af 49 (>60) L 04/19/24 04:24 Glucose 109 mg/dL (65-99) H 04/19/24 04:24 POC Glucose (mg/dL) 145 mg/dL (65-99) H 04/16/24 12:44 Calcium 8.0 mg/dL (8.5-10.1) L 04/19/24 04:24 Corrected Calcium 9.4 mg/dL (8.5-10.1) 04/19/24 04:24 Magnesium 1.6 mg/dL (2.0-2.9) L 04/19/24 04:24 Total Bilirubin 0.30 mg/dL (0.2-1.0) 04/19/24 04:24 AST 36 Units/L (15-37) 04/19/24 04:24 ALT 20 Units/L (12-78) 04/19/24 04:24 Alkaline Phosphatase 47 Units/L (46-116) 04/19/24 04:24 Creatine Kinase 293 Units/L (26-192) H 04/16/24 12:34 Troponin I High Sens 11.0 ng/L (4.0-60.0) 04/16/24 12:34 Total Protein 5.9 g/dL (6.4-8.2) L 04/19/24 04:24 Albumin 2.3 g/dL (3.4-5.0) L 04/19/24 04:24 Globulin 3.6 g/dL (2.5-4.5) 04/19/24 04:24 Albumin/Globulin Ratio 0.6 Ratio (1.1-2.1) L 04/19/24 04:24 Triglycerides 175 mg/dL (0-150) H 04/17/24 06:03 Cholesterol 126 mg/dL (0-200) 04/17/24 06:03 LDL Cholesterol, Calc 63 mg/dL (0-100) 04/17/24 06:03 HDL Cholesterol 28 mg/dL (40-60) L 04/17/24 06:03 Cholesterol/HDL Ratio 4.5 (0.0-5.0) 04/17/24 06:03 Specimen Type Clean catch urine 04/16/24 15:30 Urine Color Yellow (YELLOW) 04/16/24 15:30 Urine Appearance Clear (CLEAR) 04/16/24 15:30 Urine pH 6.0 (5.0 - 8.0) 04/16/24 15:30 Ur Specific [place] 1.020 (1.000-1.030) 04/16/24 15:30 Urine Protein 2+ (NEGATIVE) 04/16/24 15:30 Urine Glucose (UA) Negative (NEGATIVE) 04/16/24 15:30 Urine Ketones Negative (NEGATIVE) 04/16/24 15:30 Urine Blood 1+ (NEGATIVE) 04/16/24 15:30 Urine Nitrite Negative (NEGATIVE) 04/16/24 15:30 Urine Bilirubin Negative (NEGATIVE) 04/16/24 15:30 Urine Urobilinogen Normal (NORMAL) 04/16/24 15:30 Ur Leukocyte Esterase Negative (NEGATIVE) 04/16/24 15:30 Urine RBC 0-2 /HPF (0-3) 04/16/24 15:30 Urine WBC 0-2 /HPF (0-5) 04/16/24 15:30 Ur Squamous Epith Cells Few /HPF (NEGATIVE) 04/16/24 15:30 Urine Bacteria 1+ /HPF (NEGATIVE) 04/16/24 15:30 Granular Casts Few /LPF (NEGATIVE) 04/16/24 15:30 Ur Culture Indicated? No/not indicated 04/16/24 15:30 Hospital Course: Patient admitted due to worsening weakness associated with COVID-19 infection. She had been sick for approximately 3 days before presenting back to her physician. She was sent to the ER for stabilization and triage. After admission, found to have early bilateral lower lobe pneumonias. Started on azithromycin. She will be discharged on the same. She is steadily improved throughout admission with near resolution of her hyponatremia and resolution of her VICENTE. Patient and daughter both report that she is doing much better today. Patient be discharged to daughter's home with home health services for nursing and PT/OT. She will be sent home on azithromycin and albuterol. No medication changes from her chronic meds. Follow-up with PCP at the end of this week.
[2024-04-19 10:17] VITALS: BP 106/52; PULSE 68; RESP 18; TEMP 98.2
== END 2024-04-19 11:50 | disposition home health service (06) ==
LOC: MED/SURG 12:04 → ER 12:04 → U 12:04 → MED/SURG 18:45
PROVIDERS: ADMIT Internal Medicine; ATTEND Family Medicine